=== PATIENT | male | born 1940 | race Caucasian/White ===

== ENCOUNTER 2017-06-05 22:29 | Emergency (ER) | payer OTHER, BC ==
[~2017-06-05] VITALS: Ht 172.7 cm; Wt 77.1 kg
[2017-06-05 22:36] VITALS: TEMP 36.7; Ht 172.7 cm; Wt 77.1 kg
--- NOTE | 2017-06-05 23:01 | EMERGENCY ROOM VISIT NOTE ---
History Report prepared by Wendy: Kimberlee Taylor Under the Supervision of: Dr. Shubham Sahu M.D. First contact with patient: 22:49 Chief Complaint: BLEEDING Stated Complaint: PENIS BLEEDING History of Present Illness The patient is a 76 year old male who presents to the Emergency Room with complaints of persistent blood in his urine that started about 3 and a half hours ago. He notes he was sitting on the couch this evening and noticed his penis felt "odd". He states he went to the bathroom and noticed blood in his urine and on his underwear. The patient had two major surgeries in the past few months and notes he was catheterized for both. He states when he got to the ED, his urine was a very bright red. He notes he's had a cold for the past week. He states he has nasal congestion and a cough. The patient states, "when I blow my nose, it is very forceful and a large quantity comes out". The patient denies any recent injury, black stool, or other bleeding. He notes he takes 81 mg of Aspirin and Clavix. The patient denies any abdominal pain, back pain, or fevers. Source of History: patient Onset: 3 1/2 hours ago Position: other (urethra) Timing: other (persistent) Associated Symptoms: + cough, No abdominal pain, No back pain Note: Additional symptoms: nasal congestion. Review of Systems See HPI for pertinent positives & negatives. A total of 6 systems reviewed and were otherwise negative. Past Medical & Surgical Hypertension, cholecystectomy. Family History FHx: cancer Social History Smoking Status: Former Smoker Marital Status: Housing Status: lives with significant other Current/Historical Medications Scheduled Aspirin (Aspirin Ec), 81 MG PO DAILY Cephalexin Monohydrate (Keflex), 500 MG PO TID Clopidogrel (Plavix), 75 MG PO DAILY Enteral Nutrition Formula (Ensure), 1 CAN PO DAILY Probiotic Product (Probiotic), 1 CAP PO DAILY Tamsulosin Hcl (Flomax), 0.8 MG PO DAILY Scheduled PRN Loperamide Hcl (Imodium), 2 MG PO DAILY/UD PRN for Diarrhea Allergies Coded Allergies: Amlodipine (Verified Allergy, Intermediate, Swelling, 06/05/17) Infliximab (Verified Allergy, Intermediate, Syncope, 06/05/17) Levofloxacin (Verified Allergy, Intermediate, Diarrhea, 06/05/17) Sulfa Antibiotics (Verified Allergy, Intermediate, Swelling, 06/05/17) Uncoded Allergies: DEMEROL (Allergy, Intermediate, Hypotension, 06/05/17) MAXIDE (Allergy, Intermediate, Swelling, 06/05/17) Physical Exam Vital Signs Date Time Temp Pulse Resp B/P (MAP) Pulse Ox O2 Delivery O2 Flow Rate FiO2 06/06/17 02:16 79 16 146/88 98 Room Air 06/06/17 00:38 74 16 162/95 97 Room Air 06/05/17 22:36 36.7 89 20 151/92 97 Room Air Physical Exam GENERAL: Patient is well appearing and in no acute distress. HEENT: No acute trauma, normocephalic atraumatic, mucous membranes moist, no nasal congestion, no scleral icterus. NECK: No stridor, no adenopathy, no meningismus, trachea is midline. LUNGS: No dyspnea. Clear to auscultation and equal bilaterally. No wheeze, no rhonchi. HEART: Regular rate and rhythm. No murmurs, rubs, gallops appreciated. ABDOMEN: Soft, nontender, bowel sounds positive, no masses appreciated, no peritonitis. EXTREMITIES: Normal motion all extremities, no cyanosis, no edema. NEUROLOGIC: Alert and oriented, no acute motor or sensory deficits, no focal weakness, cranial nerves grossly intact. SKIN: No rash, no jaundice, no diaphoresis. Medical Decision & Procedures ER Provider Diagnostic Interpretation: Radiology results and stated below per my review and radiologist interpretation: STATRAD read: US BLADDER: Prostate enlargement. Possible bladder wall thickening with more focal thickening at the right lateral bladder wall which appears slightly irregular measuring about 7 mm in thickness. Some of bladder wall thickening may be related to prostate enlargement. Cystitis not excluded. Bladder mass, particularly in the area of more focal bladder wall thickening is not excluded. 2 cm mobile, heterogenous nonvascular structure within the bladder. Indeterminate. Could represent blood products. Radiologist: Reji Mcleod M.D. Laboratory Results Test 06/05/17 22:45 Urine Color RED Urine Appearance CLOUDY (CLEAR) Urine pH 5.0 (4.5-7.5) Urine Specific [place] 1.025 (1.000-1.030) Urine Protein 1+ (NEG) Urine Glucose (UA) NEG (NEG) Urine Ketones NEG (NEG) Urine Occult Blood 3+ (NEG) Urine Nitrite NEG (NEG) Urine Bilirubin NEG (NEG) Urine Urobilinogen NEG (NEG) Urine Leukocyte Esterase NEG (NEG) Urine RBC >30 /hpf (0-4) Urine WBC 10-30 /hpf (0-5) Urine Epithelial Cells 0-5 /lpf (0-5) Urine Bacteria NEG (NEG) Urine Hyaline Casts 0 /lpf (0-5) Laboratory results as reviewed by me. Medications Administered Medications (Trade) Dose Ordered Sig/Shaka Route Start Time Stop Time Status Last Admin Dose Admin Cephalexin Monohydrate (Keflex Cap) 500 mg NOW ONCE PO 06/06/17 02:15 06/06/17 02:16 DC 06/06/17 02:19 500 MG ED Course 2249: The patient was evaluated in room B11B. A complete history and physical exam was performed. 2330: I just spent 15 minutes discussing the patient's care. His wants the patient to be admitted for 3-4 days. I noticed a 2-3 cm small clot of blood in the patient's pants. I explained that I will place a Nolasco to see if it helps slow down the bleeding and I explained he was not having a large amount of bleeding at this time. 0040: The patient wants Nolasco out. He has emptied 100 ml of bloody urine. 0050: I spoke with patient and he is agreeable to an ultrasound of his bladder. 0150: I spoke with the patient and he is comfortable. His urine is now light pink in color. 0215: I spoke with the patient and he is feeling better, no discomfort. He will follow up with a urologist for further evaluation. We discussed symptoms requiring return. He notes he will self-catheterize himself if he is feeling any retention. The patient is ready for discharge. Medical Decision Differential: UTI, urethral injury, kidney stone, cancer, irritation of bladder , over anticoagulation, bleeding disorder. 76 yr old male arrives for evaluation of hematuria. Passing some medium sized clots. UA grossly bloody no bacteria noted but there are WBCs. No flank pain. Not anemic by exam and vitals normal. On plavix and asa for stroke prevention (he had possible TIA several years ago). No other bleeding/ bruising. He and quite anxious thus nolasco placed to confirm bleeding coming from above urethra. Getting some clotting in nolasco thus it was removed. US shows bladder wall thickening and possible mass over prostate area bladder. Clot noted in bladder. UA clearing over several hours here. He has no symptoms of retaining and looks well. Able to self cath at home if issues. Will start on Keflex in case this is infectious. Advised follow up with Urologist for further evaluation. Discussed symptoms at length that require RTED. All questions answered for him and . I think it highly unlikely this is arterial fistula given fact it is resolving here already and is not pulsatile. Medication Reconcilliation Current Medication List: was personally reviewed by me Blood Pressure Screening Patient's blood pressure: Elevated blood pressure Blood pressure disposition: Referred to PCP Impression Primary Impression: Gross hematuria Additional Impression: Bladder wall thickening Scribe Attestation The scribe's documentation has been prepared under my direction and personally reviewed by me in its entirety. I confirm that the note above accurately reflects all work, treatment, procedures, and medical decision making performed by me. Departure Information Dispostion Home / Self-Care Prescriptions Cephalexin Monohydrate (KEFLEX) 500 Mg Cap 500 MG PO TID for 7 Days, #21 CAP Prov: Shubham Sahu M.D. 06/06/17 Referrals Geovanny Clay M.D. (PCP) Patient Instructions Hematuria Poss Causes, My [facility] Additional Instructions Please follow up with your Urologist to discuss further evaluation and treatment. Use antibiotics as planned. Discuss your Aspirin and Plavix use with your primary care provider. Problem Qualifiers
[2017-06-06] MEDS ORDERED: CLOP1TAB15 PO (00:23)
[2017-06-06] MEDS ORDERED: TAMS0.4C38 PO (00:24)
[2017-06-06] MEDS ORDERED: ASPI81TA28 PO (00:25)
[2017-06-06] MEDS ORDERED: MISCCAP80 PO (00:26)
[2017-06-06] MEDS ORDERED: NUTR-706 PO (00:27)
[2017-06-06] MEDS ORDERED: IMD/2 PO (00:29)
[2017-06-06] MEDS ORDERED: CEPHALEXIN MONOHYDRATE 250 MG CAP PO ONE (02:15)
[2017-06-06 02:16] VITALS: BP 146/88; PULSE 79; O2SAT 98
[2017-06-06] MEDS ORDERED: CEPH500C2 PO (02:17)
--- NOTE | 2017-06-06 07:06 | DIAGNOSTIC IMAGING REPORT ---
ULTRASOUND OF GALLBLADDER CLINICAL HISTORY: Gross hematuria. COMPARISON STUDY: Pelvic CT dated 03/05/2016. FINDINGS: Real-time, grayscale, and color flow sonography of the bladder is performed. The prostate gland is enlarged and heterogeneous. There is median lobe hypertrophy. The bladder wall appears thickened and trabeculated consistent with chronic trauma obstruction. Thickening along the right bladder wall appears somewhat asymmetric and measures up to 7 mm in thickness. Both ureteral jets were identified. Intraluminal debris is present within the bladder, likely representing blood products. IMPRESSION: 1. Prostatomegaly with evidence of chronic bladder outlet obstruction. 2. Bladder wall thickening appears asymmetric on the right measuring up to 7 mm. A mass lesion would be impossible to exclude. Correlation with cystoscopy is recommended. 3. Intraluminal debris likely represents blood clots. Electronically signed by: Aayush Sharif M.D. 06/06/2017 7:05 AM Dictated Date/Time: 06/06/2017 7:03 AM
== END 2017-06-06 02:46 | disposition home or self-care (01) ==
LOC: C.EDB 22:32
DX: R31.0 Gross hematuria (principal); N32.9 Bladder disorder, unspecified; I10 Essential (primary) hypertension; Z98.890 Other specified postprocedural states; Z87.891 Personal history of nicotine dependence; Z79.82 Long term (current) use of aspirin; Z88.8 Allergy status to other drugs, medicaments and biological substances; Z88.1 Allergy status to other antibiotic agents; Z88.2 Allergy status to sulfonamides